=== PATIENT | male | born 1960 | race Caucasian/White ===

== ENCOUNTER → 2016-04-14 | Outpatient (CLI) | payer OTHER ==
--- NOTE | 2016-04-14 08:44 | CR ---
EXAMINATION: Two-view chest (PA and Lateral views). HISTORY: Pneumonia. FINDINGS: The trachea is midline. The cardiomediastinal silhouette is within normal limits. No pulmonary infil trates, effusions or pneumothorax. There is S-shaped curvature of the thoracolumbar spine. IMPRESSION: No acute cardiopulmonary process.
== END ==
LOC: MW.CHIM 08:09
PROVIDERS: ATTEND Internal Medicine
DX: J18.9 Pneumonia, unspecified organism (principal); R68.89 Other general symptoms and signs
CPT/HCPCS: 71020; 71020-26; 87804

== ENCOUNTER → 2016-04-30 | Outpatient (CLI) | payer OTHER ==
[~2016-04-30] MED LIST: Iopamidol 755 MG/ML 500 ML Multipack Bottle IVPUSH STA
--- NOTE | 2016-04-30 11:34 | CT ---
EXAMINATION: CT chest with contrast HISTORY: Pneumonia COMPARISON: Radiograph dated 04/14/2016. TECHNIQUE: Axial CT images obtained through the chest following the administration of 75 mL of Isovu [id number] the right antecubital fossa. Coronal and sagittal reconstructions obtained. FINDINGS: The lungs are clear without focal consolidation. Trace dependent atelectasis. No pleural e ffusion or pneumothorax. There are a few borderline nonpathologically enlarged mediastinal and hilar lymph nodes noted. Thoracic aorta is normal in caliber. The main pulmonary arteries are patent. Saran tral airways are clear. No axillary lymphadenopathy. The heart is normal in size without a pericardi al effusion. There are a few hypodensities within the liver, likely representing cysts. Residual Soft tissues not ed within the gallbladder fossa with cholecystectomy clips noted. There is a small nonobstructing le ft renal stone. No suspicious osseous abnormalities identified. IMPRESSION: 1. No acute cardiopulmonary findings. 2. Nonobstructing left nephrolithiasis. 3. Small hepatic cyst.
== END ==
LOC: MW.DI 09:45
PROVIDERS: ATTEND Internal Medicine
DX: R05 Cough (principal); J18.0 Bronchopneumonia, unspecified organism; N20.0 Calculus of kidney; K76.89 Other specified diseases of liver
CPT/HCPCS: 71260; Q9967